=== PATIENT | male | born 1955 | race Caucasian/White ===

== ENCOUNTER → 2018-10-12 | Outpatient (CLI) | payer MEDICARE, OTHER | LOC: COL.RAD 12:33 | DX: M16.11 Unilateral primary osteoarthritis, right hip (principal) | CPT/HCPCS: J3301; Q9967 ==

== ENCOUNTER 2019-07-13 12:26 | Emergency (ER) | payer MEDICARE, OTHER ==
[~2019-07-13] VITALS: Ht 182.9 cm; Wt 94.1 kg
[2019-07-13 12:32] VITALS: TEMP 96.9
[2019-07-13] MEDS ORDERED: PRINIVIL10 MG PO (12:45)
[2019-07-13 12:57] LABS: BASO % 0.4 % (0.0-2.0); EOS # 0.1 (0.0-0.7); EOS % 1.5 % (0-4.0); GRAN # 4.1 (1.4-6.5); GRAN % 78.2 % (42.2-75.2); HEMATOCRIT 38.4 % (42.0-52.0); HEMOGLOBIN 12.7 g/dl (13.5-18.0); LYMPH # 0.8 (1.2-3.4); LYMPH % 15.7 % (20.0-51.0); MEAN CELL VOLUME 96 fl (80.0-100.0); MEAN CORPUSCULAR HEMOGLOBIN 32 pg (27.0-31.0); MEAN CORPUSCULAR HGB CONC 33 g/dl (33.0-37.0); MEAN PLATELET VOLUME 9.3 fl (7.4-10.4); MONO # 0.2 (0.1-0.6); MONO % 3.4 % (1.7-9.3); PLATELET COUNT 214 K/mm3 (130-400); RED BLOOD COUNT 3.99 M/mm3 (4.20-5.60); REDCELL DISTRIBUTION WIDTH-CV 12.6 % (11.5-14.5)
[2019-07-13 12:59] LABS: PROTHROMBIN TIME 11.6 SECONDS (9.7-12.8)
[2019-07-13 13:02] LABS: PARTIAL THROMBOPLASTIN TIME 22.6 SECONDS (26.0-37.0)
[2019-07-13 13:09] LABS: ALANINE AMINOTRANSFERASE 21 U/L (21-72); ALBUMIN 3.4 gm/dL (3.5-5.0); ALKALINE PHOSPHATASE 48 U/L (50-136); ANION GAP 7 mmol/L (7-16); AST,SGOT 22 U/L (15-37); BILIRUBIN,TOTAL 0.6 mg/dL (0.0-1.0); BLOOD UREA NITROGEN 15 mg/dL (9-20); CALCIUM 8.7 mg/dL (8.4-10.2); CARBON DIOXIDE 26 mmol/L (22-30); CHLORIDE 105 mmol/L (98-107); CREATININE, serum 0.92 (0.66-1.25); GLUCOSE 130 mg/dL (74-106); LIPASE 45 U/L (23-300); POTASSIUM 4.9 mmol/L (3.4-5.0); SODIUM 137 mmol/L (137-145); TOTAL PROTEIN 6.3 gm/dL (6.4-8.2)
[2019-07-13 13:22] VITALS: BP 131/72; PULSE 60
[2019-07-13 13:29] LABS: TROPONIN-I < 0.012 ng/mL (0.000-0.035)
== END 2019-07-13 13:22 | disposition short-term general hospital (02) ==
LOC: COL.ER 12:26
PROVIDERS: Emergency Medicine
DX: I21.9 Acute myocardial infarction, unspecified (principal); R07.89 Other chest pain; I10 Essential (primary) hypertension; J45.909 Unspecified asthma, uncomplicated; Z87.39 Personal history of other diseases of the musculoskeletal system and connective tissue
CPT/HCPCS: J1644

== ENCOUNTER → 2019-09-06 | Outpatient (CLI) | payer MEDICARE, OTHER ==
[~2019-09-06] MED LIST: PRINIVIL10 MG PO
[2019-09-06 18:20] LABS: BASO % 0.3 % (0.0-2.0); EOS # 0.1 (0.0-0.7); EOS % 1.7 % (0-4.0); GRAN # 4.8 (1.4-6.5); GRAN % 73.9 % (42.2-75.2); HEMATOCRIT 40.6 % (42.0-52.0); HEMOGLOBIN 13.6 g/dl (13.5-18.0); LYMPH # 0.9 (1.2-3.4); LYMPH % 13.7 % (20.0-51.0); MEAN CELL VOLUME 96 fl (80.0-100.0); MEAN CORPUSCULAR HEMOGLOBIN 32 pg (27.0-31.0); MEAN CORPUSCULAR HGB CONC 34 g/dl (33.0-37.0); MEAN PLATELET VOLUME 9.5 fl (7.4-10.4); MONO # 0.7 (0.1-0.6); MONO % 10.1 % (1.7-9.3); PLATELET COUNT 256 K/mm3 (130-400); RED BLOOD COUNT 4.21 M/mm3 (4.20-5.60); REDCELL DISTRIBUTION WIDTH-CV 12.7 % (11.5-14.5)
[2019-09-06 18:23] LABS: INR 1.1 (0.8-3.0); PROTHROMBIN TIME 12.4 SECONDS (9.7-12.8)
[2019-09-06 18:26] LABS: PARTIAL THROMBOPLASTIN TIME 34.9 SECONDS (26.0-37.0)
[2019-09-06 19:10] LABS: ERYTHROCYTE SEDIMENTATION RATE 18 mm/hr (0-30)
== END ==
LOC: COL.LAB 17:03
PROVIDERS: Orthopaedic Surgery Sports Medicine
DX: M25.561 Pain in right knee (principal); Z96.651 Presence of right artificial knee joint

== ENCOUNTER 2024-03-04 10:34 | Day surgery (SDC) | payer MEDICARE, OTHER ==
[~2024-03-04] VITALS: Ht 182.9 cm; Wt 91.2 kg
[~2024-03-04 10:34] MED LIST changes: +LR 1,000 ML IV SCH; -PRINIVIL10 MG PO; +PRINIVIL20 MG PO
[2024-03-04 11:12] LABS: HEMOGLOBIN 14.1 g/dl (13.5-18.0); MEAN CELL VOLUME 94 fl (80.0-100.0); MEAN CORPUSCULAR HEMOGLOBIN 32 pg (27-31); MEAN CORPUSCULAR HGB CONC 34 g/dl (33.0-37.0); MEAN PLATELET VOLUME 9.4 fl (7.4-10.4); PLATELET COUNT 202 K/mm3 (130-400); RED BLOOD COUNT 4.35 M/mm3 (4.20-5.60); REDCELL DISTRIBUTION WIDTH-CV 12.7 % (11.5-14.5)
[2024-03-04] MEDS ORDERED: COREG 3.123.125 MG/T PO ×2 (11:21→12:52)
[2024-03-04 11:25] VITALS: BP 152/89; PULSE 65; TEMP 97.5
[2024-03-04 11:27] LABS: INR 1.1 (0.8-3.0); PROTHROMBIN TIME 12.3 SECONDS (9.7-12.8)
[2024-03-04 11:30] LABS: CALCIUM 9.3 mg/dL (8.4-10.2); CREATININE, serum 1.05 mg/dL (0.72-1.25); POTASSIUM 4.1 mEq/L (3.5-4.5)
[2024-03-04] MEDS ORDERED: Lidocaine PF 2% (20 MG/ML) 5 ML VIAL ONE (12:02)
--- NOTE | 2024-03-04 12:39 | NUR ---
See anesthesia note for intraprocedure charting, see moderate sedation note for post procedure charting.
[2024-03-04 12:50] VITALS: BP 120/72; PULSE 62
--- NOTE | 2024-03-04 12:53 | NUR ---
Bedside report completed with Dion ERIC. Call light within reach, fluids tko. Dion ERIC denies question/concerns at this time.
[2024-03-04 13:00] VITALS: BP 132/81; PULSE 55
[2024-03-04 13:15] VITALS: BP 131/84; PULSE 58
[2024-03-04 13:30] VITALS: BP 138/87; PULSE 59
[2024-03-04 13:45] VITALS: BP 143/92; PULSE 54
--- NOTE | 2024-03-04 13:50 | NUR ---
DC instructions reviewed with pt and , both express understanding. He has rested comfortable following LARRY. He has drank cup of water with no swallowing difficulty. He is steady on feet in room. IV DC'd, site wrapped with coban. He is assisted out to 's car by wheelchair with belongings.
== END 2024-03-04 13:50 | disposition home or self-care (01) ==
LOC: COL.CAR 10:34
PROVIDERS: Internal Medicine Cardiovascular Disease
DX: I08.3 Combined rheumatic disorders of mitral, aortic and tricuspid valves (principal); I10 Essential (primary) hypertension; I77.810 Thoracic aortic ectasia
CPT/HCPCS: J2704; J7120

== ENCOUNTER 2024-03-19 07:05 | Day surgery (SDC) | payer MEDICARE, OTHER ==
[2024-03-19] VITALS (10 sets, daily range): BP systolic 97–146; BP diastolic 58–82; PULSE 5–64; TEMP 96.8
[~2024-03-19] VITALS: Ht 182.9 cm; Wt 91.8 kg
[~2024-03-19 07:05] MED LIST changes: +COREG 3.123.125 MG/T PO; -LR 1,000 ML IV SCH; +PRINIVIL10 MG PO; -PRINIVIL20 MG PO
[2024-03-19] MEDS ORDERED: 1/2 NS 1,000 ML IV SCH (07:30)
[2024-03-19 07:58] LABS: HEMATOCRIT 39.7 % (42.0-52.0); HEMOGLOBIN 13.3 g/dl (13.5-18.0); MEAN CELL VOLUME 96 fl (80.0-100.0); MEAN CORPUSCULAR HEMOGLOBIN 32 pg (27-31); MEAN CORPUSCULAR HGB CONC 34 g/dl (33.0-37.0); MEAN PLATELET VOLUME 9.4 fl (7.4-10.4); PLATELET COUNT 206 K/mm3 (130-400); RED BLOOD COUNT 4.14 M/mm3 (4.20-5.60); REDCELL DISTRIBUTION WIDTH-CV 12.7 % (11.5-14.5)
[2024-03-19 07:59] LABS: INR 1.1 (0.8-3.0); PROTHROMBIN TIME 12.1 SECONDS (9.7-12.8)
[2024-03-19 08:01] LABS: PARTIAL THROMBOPLASTIN TIME 34.2 SECONDS (26.0-37.0)
[2024-03-19 08:15] LABS: CREATININE, serum 0.93 mg/dL (0.72-1.25)
--- NOTE | 2024-03-19 09:12 | NUR ---
SEE MERGE FOR PROCEDURE DOCUMENTATION
[2024-03-19] MEDS ORDERED: Midazolam 2 MG/2 ML VIAL IV SCH (09:20)
[2024-03-19] MEDS ORDERED: fentaNYL 50 MCG/ML 2 ML VIAL IV SCH (09:21)
[2024-03-19] MEDS ORDERED: Heparin 1,000 UNITS/ML 10 ML Multi-Dose VIAL IV SCH (09:25)
[2024-03-19] MEDS ORDERED: Heparin 1,000 UNITS/ML 10 ML Multi-Dose VIAL IA SCH (09:26)
[2024-03-19] MEDS ORDERED: Verapamil 2.5 MG/ML 2 ML VIAL IA SCH (09:28)
[2024-03-19] MEDS ORDERED: Nitroglycerin 100 MCG/ML (Cath Lab) 10 ML VIAL IA SCH (09:29)
[2024-03-19] MEDS ORDERED: Iohexol 350 - 100 ML VIAL INCOR ONE (09:30)
--- NOTE | 2024-03-19 09:53 | NUR ---
PATIENT ALERT AND ORIENTED, VSS. PATIENT TRANSFERRED INDEPENDENTLY TO BED VIA SLIDE AND TRANSPORTED TO [facility]. SPOUSE BROUGHT TO BEDSIDE, PLAN OF CARE REVIEWED. QUESTIONS INVITED. VITAL SIGNS TAKEN ON ARRIVAL, VSS. RIGHT RADIAL SITE CDI. TRANSFER OF CARE TO JEAN[facility] TRAVIS. PATIENT PROVIDED CALL LIGHT, BED TO LOWEST POSITION, X3 BEDRAILS IN PLACE.
--- NOTE | 2024-03-19 11:52 | NUR ---
Pt assisted up to restroom. Gait steady. He ate meal tray. Free of complaints. remains at bedside. Call light in reach.
--- NOTE | 2024-03-19 12:30 | NUR ---
Air was removed from TR band in 2 ml increments, no bleeding or complications at site. Rt radial puncture site dressed with folded 2x2 and bandaid. DC instructions reviewed with pt and . Both express understanding. Pt is ambulatory in room with standby assistance. States he feels slighly dizzy, but feels this is due to his typical peripheral vestibulopathy. He is able to transfer from bed to wheelchair without issue, and then from wheelchair into 's car. IV DC'd, site wrapped in coban. He is free of complaints at discharge.
== END 2024-03-19 12:30 | disposition home or self-care (01) ==
LOC: COL.CAR 07:05
PROVIDERS: Internal Medicine Cardiovascular Disease
DX: I34.1 Nonrheumatic mitral (valve) prolapse (principal); I10 Essential (primary) hypertension; I35.1 Nonrheumatic aortic (valve) insufficiency; I34.0 Nonrheumatic mitral (valve) insufficiency
CPT/HCPCS: J1644; J2250; J3010; Q9967